=== PATIENT | male | born 1945 | race Caucasian/White ===

== ENCOUNTER 2016-10-19 09:10 | Day surgery (SDC) | payer MEDICARE, OTHER ==
[~2016-10-19] VITALS: Ht 180.3 cm; Wt 94.6 kg
[~2016-10-19 09:10] MED LIST: LIPITOR 40MG TA40 MG PO
[2016-10-19] MEDS ORDERED: PRINIVIL20 MG PO (09:38)
[2016-10-19] MEDS ORDERED: ZANTAC 300300 MG PO (09:38)
[2016-10-19 09:39] VITALS: BP 126/75; PULSE 97; TEMP 98.9
[2016-10-19 11:05] VITALS: BP 113/74; PULSE 80; TEMP 97.2
[2016-10-19 11:20] VITALS: BP 100/69; PULSE 78
[2016-10-19 11:35] VITALS: BP 104/63; PULSE 74
== END 2016-10-19 11:47 | disposition home or self-care (01) ==
LOC: SDCO 09:10
DX: Z12.11 Encounter for screening for malignant neoplasm of colon (principal); Z86.010 Personal history of colon polyps; K57.90 Diverticulosis of intestine, part unspecified, without perforation or abscess without bleeding; I10 Essential (primary) hypertension
CPT/HCPCS: OP; J2250; J3010; J7030

== ENCOUNTER → 2016-10-29 | Outpatient (CLI) | payer MEDICARE, OTHER ==
[~2016-10-29] MED LIST changes: +PRINIVIL20 MG PO; +ZANTAC 300300 MG PO
== END ==
LOC: COL.RAD 14:03
DX: R79.89 Other specified abnormal findings of blood chemistry (principal); N28.1 Cyst of kidney, acquired